=== PATIENT | female | born 1965 | race Caucasian/White ===

== ENCOUNTER 2017-03-15 21:26 | Inpatient (IN) ==
[2017-03-15] MEDS ORDERED: DUONEB (A & A) INH ONE (21:55)
--- NOTE | 2017-03-15 22:11 | PROVIDER DOCUMENTATION ---
HPI-Respiratory General - General Chief Complaint: Cough Stated Complaint: NAUSEA/FACIAL NUMB Time Seen by Provider: 03/15/17 22:05 Allergies/Adverse Reactions: Patient Allergies Allergy/AdvReac Type Severity Reaction Status Date / Time povidone-iodine Allergy SWELLING Verified 03/15/17 21:43 [From Betadine] soap [From Betadine] Allergy SWELLING Verified 03/15/17 21:43 Home Medications: Home Medication List Medication Instructions Recorded Confirmed Last Taken Type NK [No Home Medications] 03/15/17 03/15/17 Unknown History Review of Systems - Adult - REVIEW OF SYSTEMS - ADULT Constitutional: reports: see HPI Eyes: reports: no symptoms reported Ears, Nose, Mouth & Throat: reports: no symptoms reported Cardiovascular: reports: no symptoms reported Respiratory: reports: see HPI Gastrointestinal: reports: no symptoms reported Genitourinary: reports: no symptoms reported Musculoskeletal: reports: no symptoms reported Integumentary: reports: no symptoms reported Neurological: reports: no symptoms reported Psychiatric: reports: no symptoms reported Endocrine: reports: no symptoms reported Hematologic/Lymphatic: reports: no symptoms reported Allergic/Immunologic: reports: no symptoms reported All Other Systems: Reviewed and Negative Past History - Adult - PAST MEDICAL HISTORY-ADULT Review of Records: reports: Old Records Reviewed, Nursing Assessment Review, Medications Reviewed Major Childhood Illnesses: reports: denies history Cardiovascular: reports: denies history Respiratory: reports: pneumonia Gastrointestinal: reports: denies history Obstetrical/Gynecological: reports: denies history Genitourinary: reports: denies history Musculoskeletal: reports: denies history Neurological: reports: denies history Psychiatric: reports: denies history Endocrine/Immune: reports: denies history Other Conditions: reports: denies history - PRIOR SURGERIES/PROCEDURES Surgical/Procedure History: reports: none - FAMILY HISTORY Family History: reviewed, not pertinent - SOCIAL HISTORY Smoking: less than 1 pack/day Substance Use: none/never Alcohol Use Frequency: never Living Situation: family Physical Exam-General - PHYSICAL EXAM-ADULT Initial Vital Signs Reviewed: Yes - CONSTITUTIONAL General Appearance: alert, mild distress - EYES Eyes: PERRL/EOMI, pink conjunctivae - HEAD, EARS, NOSE, MOUTH & THROAT HENMT: normocephalic/atraumatic, moist mucous membranes, normal ENT inspection, TMs normal, pharynx normal - NECK Neck: non-tender, full range of motion, supple - RESPIRATORY Respiratory: chest non-tender, rhonchi, wheezing, increased rate. negative: no pleuratic chest pain, no respiratory distress, no accessory muscle use, respiratory distress, decreased breath sounds, accessory muscle use, crackles, rales, dull on percussion, prolonged expiration, pain on inspiration, plerual rub, retractions, splinting, decreased rate, crepitus, other - CARDIOVASCULAR Cardiovascular: normal peripheral pulses, regular rate, rhythm - GASTROINTESTINAL (ABDOMEN) Abdominal Exam: normal bowel sounds - LYMPHATIC Lymphatic: no adenopathy - MUSCULOSKELETAL Back Exam: normal inspection Extremity: normal range of motion - SKIN Integumentary: normal color, normal turgor, warm/dry - NEUROLOGIC Neurologic: artist woodblock II-XII nml as tested, grossly normal, no motor/sensory deficits - PSYCHIATRIC Psych/Mental Status: normal mood/affect, normal thought content, normal thought process Progress - PLAN OF CARE/RESULTS Progress/Plan/Lab Results: Vital Signs - 8 hr 03/15/17 21:34 03/15/17 21:58 03/15/17 21:59 Temperature 98.5 F Pulse Rate 108 H 89 87 Respiratory Rate 20 Blood Pressure 118/75 O2 Sat by Pulse Oximetry 91 L 91 L 95 03/15/17 22:05 03/16/17 00:14 Temperature Pulse Rate 91 H 82 Respiratory Rate 18 20 Blood Pressure 138/78 O2 Sat by Pulse Oximetry 96 98 Laboratory Results - last 24 hr 03/15/17 03/15/17 03/15/17 22:20 23:50 23:50 WBC 10.82 H RBC 4.18 L Hgb 12.9 Hct 40.1 MCV 95.9 MCH 30.9 MCHC 32.2 L RDW Std Deviation 13.3 Plt Count 219 MPV 10.1 Immature Gran % (Auto) 0.1 Neut % (Auto) 48.7 Lymph % (Auto) 40.1 [place] % (Auto) 9.1 Eos % (Auto) 1.6 Baso % (Auto) 0.4 Immature Gran # (Auto) 0.01 Neut # (Auto) 5.27 Lymph # (Auto) 4.34 H [place] # (Auto) 0.99 H Eos # (Auto) 0.17 Baso # (Auto) 0.04 D-Dimer Specimen Type ARTERIAL Sample Site R BRACHIAL pH 7.42 pCO2 47 H pO2 45 L* HCO3 28.4 H Base Excess 5.0 H Oxyhemoglobin 83.2 L* ABG O2 Sat (Calculated) 16.6 ABG O2 Saturation 85.7 L ABG Carboxyhemoglobin 2.40 ABG Methemoglobin 0.5 Ga Test YES A-a O2 Difference 46.0 Total Hemoglobin 14.2 Lactate 0.70 Blood Gas Modality ROOM AIR FiO2 % 21.0 Sodium 140 Potassium 3.8 Chloride 106 Carbon Dioxide 25 Anion Gap 9 BUN 23 H Creatinine 1.2 H Estimated GFR/1.73 m2 47 BUN/Creatinine Ratio 19 Glucose 105 H Calculated Osmolality 283 Calcium 8.5 L Total Bilirubin < 0.15 L AST 14 ALT 10 Alkaline Phosphatase 58 Troponin T Qvo-R-Nxknftukafh Pept Total Protein 6.1 L Albumin 3.7 Globulin 2.0 Albumin/Globulin Ratio 2.0 03/15/17 03/15/17 03/15/17 23:50 23:50 23:50 WBC RBC Hgb Hct MCV MCH MCHC RDW Std Deviation Plt Count MPV Immature Gran % (Auto) Neut % (Auto) Lymph % (Auto) [place] % (Auto) Eos % (Auto) Baso % (Auto) Immature Gran # (Auto) Neut # (Auto) Lymph # (Auto) [place] # (Auto) Eos # (Auto) Baso # (Auto) D-Dimer 0.35 Specimen Type Sample Site pH pCO2 pO2 HCO3 Base Excess Oxyhemoglobin ABG O2 Sat (Calculated) ABG O2 Saturation ABG Carboxyhemoglobin ABG Methemoglobin Ga Test A-a O2 Difference Total Hemoglobin Lactate Blood Gas Modality FiO2 % Sodium Potassium Chloride Carbon Dioxide Anion Gap BUN Creatinine Estimated GFR/1.73 m2 BUN/Creatinine Ratio Glucose Calculated Osmolality Calcium Total Bilirubin AST ALT Alkaline Phosphatase Troponin T < 0.010 Dhl-R-Ennqtjcwonx Pept 44 Total Protein Albumin Globulin Albumin/Globulin Ratio Orders Category Date Time Status Admit - [facility] Routine AdmDCTranf 03/16/17 00:54 Ordered Activity - Bed Rest with BRP ORDERED Care 03/16/17 00:54 Active Cardiac Monitoring DIRECTED Care 03/15/17 23:08 Active Resuscitation Status Routine Care 03/16/17 00:54 Ordered Saline Loc NOW Care 03/15/17 22:56 Active Vital Signs Order Q 4-HR ASSESS Care 03/16/17 00:54 Active Z-Document. for Tele Applied ORDERED Care 03/16/17 00:55 Active Heart Healthy Diet Diet 03/16/17 00:56 Active CHEST-2 VIEWS [RAD] Stat Exams 03/15/17 22:08 Taken ABG [RESP] Routine Lab 03/15/17 22:20 Completed BLOOD CULTURE [BLDCUL] Stat Lab 03/15/17 22:56 Ordered BNP [PRO B-NATRIURETIC PEPTIDE] Stat Lab 03/15/17 23:50 Completed CBC WITH DIFF [HEME] Stat Lab 03/15/17 23:50 Completed COMPREHENSIVE METABOLIC PANEL [CHEM] Stat Lab 03/15/17 23:[address] D-DIMER [address] [COAG] Stat Lab 03/15/17 23:50 Completed TROPONIN T Stat Lab 03/15/17 23:50 Completed 0.9% Sodium Chloride Inj [Ns] 1,000 ml Med 03/15/17 22:55 Discontinued IV Wide Open 0.9% Sodium Chloride Inj [Ns] 2,400 ml Med 03/16/17 00:54 Active IV 100 mls/hr Albuterol 2.5MG/Ipratrop 0.5MG [Duoneb (A & A)] Med 03/15/17 21:55 Discontinued 3 ml INH NOW ONE Albuterol 2.5MG/Ipratrop 0.5MG [Duoneb (A & A)] Med 03/16/17 03:30 Active 3 ml INH RTQ4H CefTRIAXONE 1 GM/NS [Rocephin 1 gm/Ns] Med 03/16/17 00:58 Active 1 gm in 50 ml IV NOW Methylprednisolone Sod Succ [Solu-Medrol] Med 03/15/17 22:55 Discontinued 125 mg IV NOW ONE Methylprednisolone Sod Succ [Solu-Medrol] Med 03/16/17 01:00 Active 60 mg IV Q6H Aerosol Treatments Routine Ot 03/15/17 21:56 Active Aerosol Treatments Routine Ot 03/16/17 00:57 Active Aerosol Treatments Stat Ot 03/15/17 21:56 Active Aerosol Treatments Stat Ot 03/16/17 00:57 Active O2 Per Protocol Routine Ot 03/15/17 21:56 Active Oxygen Device Routine Ot 03/16/17 00:55 Active Pulse Oximetry Stat Ot 03/15/17 22:56 Active Telemetry [OM.EQ] Routine Ot 03/16/17 00:54 Active EKG [EKG] Stat Ther 03/15/17 23:08 Draft Transfer/Admit Order [TRANSFER] Routine Transfer 03/16/17 00:57 Ordered DISCUSSED FINDINGS AND NEED FOR HOSPITALIZATION WITH PATIENT AND FAMILY WHO VOICE UNDERSTANDING OF CARE. Result Diagrams: 03/15/17 23:50 03/15/17 23:50 - XRAY 1 XRAY Study: Chest Impression: Normal (NO PNEUMONIA. NO PNEUMOTHORAX) - CT/MRI 1 MRI Study: Chest Impression: Normal (NO PE. NO PNEUMONIA) - CONSULTS/PCP/HOSPITALIST Notification Time Discussed: 13:00 Reason/Comments: ADMIT TO FLOOR Consult Disposition: Admit Departure - Departure Date of Disposition Decision: 03/16/17 Time of Disposition Decision: 01:04 DIAGNOSIS: COPD exacerbation, Hypoxemia Disposition: ADMITTED INPATIENT 09 Certified Medical Emergency: Emergent Condition: Stable Referrals and Follow-Ups: None,PCP [Primary Care Provider] - - Critical Care Note This patient required my direct & personal management of CC.: No Attestation - Physician/ ANJEL Attestation Patient care was provided by Advanced Practice Provider:: Yes Advanced Practice Provider:: Francoise Meeyrs Advanced Practice Provider documentation review:: The Mid-level provider documentation, treatment plan and medical decision making was reviewed by the physician who agrees with all treatment and medical decision making by the [facility]. The physician spent face to face time with patient:: Yes Advanced Practice Provider documentation review:: Supervising physician onsite and consulted in the evaluation and care of this patient. The physician did have a face to face encounter with the patient.
[2017-03-15 22:39] LABS: BLOOD TYPE ARTERIAL; DRAW SITE R BRACHIAL; METHB 0.5 % (0.0-1.5); O2(CT) 16.6 mL/dL (15.0-23.0); PCO2(98.6) 47 mmHg (35-45); SAMPLE BLOOD; SAO2 85.7 % (95.0-100.0); THB 14.2 g/dL (11.5-17.4); pH(98.6) 7.42 (7.35-7.45)
[2017-03-15 22:43] LABS: PO2(98.6) 45 mmHg (60-100)
[2017-03-15 22:44] LABS: MODALITY ROOM AIR
[2017-03-15] MEDS ORDERED: NS 1,000 ML IV ONE (22:55)
[2017-03-15] MEDS ORDERED: SOLU-MEDROL IV ONE (22:55)
--- NOTE | 2017-03-15 23:24 | EKG Report ---
Test Performed on : 03/15/2017 11:21:54 PM Test Reason : CP Blood Pressure : / mmHG Vent. Rate : 085 BPM Atrial Rate : 085 BPM P-R Int : 126 ms QRS Dur : 090 ms QT Int : 394 ms P-R-T Axes : 070 062 053 degrees QTc Int : 468 ms Normal sinus rhythm. Possible Left atrial enlargement Possible Anterior infarct , age undetermined Abnormal ECG No previous ECGs available Unconfirmed Result
--- NOTE | 2017-03-15 23:28 | ED EKG INTERP ---
This chart was entered by Pushpa Kennedy Scribe, acting as scribe for Nico Aldridge MD. EKG Interpretation - EKG Time of EKG reading by physician:: 23:21 EKG Read and Signed by:: Nico Aldridge EKG Interpretation (*Must complete 3 of following elements*): Abnormal Rate: 85 Rhythm: normal sinus Comments: Abnormal ECG Attestation - Physician/ ANJEL Attestation Patient care was provided by Advanced Practice Provider:: Yes Advanced Practice Provider documentation review:: The Mid-level provider documentation, treatment plan and medical decision making was reviewed by the physician who agrees with all treatment and medical decision making by the MLP. The physician spent face to face time with patient:: No Advanced Practice Provider documentation review:: Supervising physician onsite and consulted in the evaluation and care of this patient. The physician did not have a face to face encounter with the patient. This chart was documented by the indicated scribe, (Pushpa Kennedy Scribe) and accurately reflects the services I performed and decisions made by me, Nico Aldridge MD, as attested by the provider's signature.
[2017-03-15 23:56] LABS: MANUAL DIFF NEEDED? NO
[2017-03-16 00:04] LABS: BASO% 0.4 % (0.0-0.8); EOS# 0.17 X1000 (0.0-0.7); EOS% 1.6 % (0.0-10.0); HEMATOCRIT 40.1 % (37.0-47.0); HEMOGLOBIN 12.9 g/dL (12.0-16.0); IMM GRAN# 0.01 X1000 (0.0-0.04); IMM GRAN% 0.1 % (0.0-0.5); LYMPH# 4.34 X1000 (1.2-3.4); LYMPH% 40.1 % (20.5-51.1); MCH 30.9 PG (27-31); MCHC 32.2 g/dL (33-37); MCV 95.9 FL (81-99); MONO# 0.99 X1000 (0.11-0.59); MONO% 9.1 % (1.7-9.3); MPV 10.1 FL (7.4-10.4); NEUT% 48.7 % (42.2-75.2); PLT 219 X1000 (130-400); RBC 4.18 XMIL (4.2-5.4)
[2017-03-16 00:50] LABS: AGAP 9; ALBUMIN 3.7 g/dL (3.5-5.0); ALKALINE PHOSPHATASE 58 U/L (32-104); BUN 23 mg/dL (8-22); CALCIUM 8.5 mg/dL (8.8-10.2); CHLORIDE 106 mmol/L (98-107); COSMO 283; GOT 14 U/L (10-30); GPT 10 U/L (10-36); POTASSIUM 3.8 mmol/L (3.5-5.1); SODIUM 140 mmol/L (136-145); TCO2 25 mmol/L (25-35); TOTAL BILIRUBIN < 0.15 mg/dL (0.20-1.00); TOTAL PROTEIN 6.1 g/dL (6.3-8.3)
[2017-03-16] MEDS ORDERED: NS 2,400 ML IV ONE (00:54)
[2017-03-16] MEDS ORDERED: ROCEPHIN 1 GM/NS 1 GM/50 ML IVPB IV ONE (00:58)
[2017-03-16] MEDS: SOLU-MEDROL IV SCH ×4 (02:56→19:53)
[2017-03-16] MEDS ORDERED: ZOFRAN IV PRN (03:25)
[2017-03-16] MEDS: DUONEB (A & A) INH SCH ×6 (03:26→23:45)
[2017-03-16] MEDS: TYLENOL PO PRN ×2 (04:25→18:24)
--- NOTE | 2017-03-16 05:59 | Diag Imaging Result Doc PS360 ---
EXAM: CHEST-2 VIEWS HISTORY: SOB TECHNIQUE: COMPARISON: None. FINDINGS: The lungs are hyper expanded. The heart is not enlarged. The vessels are not distended. There are no infiltrates. No pleural effusions. Mild scoliosis. IMPRESSION: The lungs are hyperexpanded and the patient may have emphysema. Electronically signed by Benji Mane 03/16/2017 5:56 AM
[2017-03-16] MEDS: ZITHROMAX 500 MG/NS 500 MG/250 ML IVPB IV SCH (06:59)
[2017-03-16] MEDS ORDERED: NICODERM PATCH TD PRN (11:23)
[2017-03-16 11:56] LABS: ALLEN TEST NO
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
[2017-03-17] MEDS: DUONEB (A & A) INH SCH ×6 (03:37→23:23)
[2017-03-17] MEDS: SOLU-MEDROL IV SCH ×3 (04:02→20:34)
[2017-03-17] MEDS: ZITHROMAX 500 MG/NS 500 MG/250 ML IVPB IV SCH (06:04)
[2017-03-17] MEDS: PRILOSEC PO SCH (06:11)
[2017-03-17 06:33] LABS: HEMATOCRIT 39.8 % (37.0-47.0); HEMOGLOBIN 12.9 g/dL (12.0-16.0); MCH 30.4 PG (27-31); MCHC 32.4 g/dL (33-37); MCV 93.9 FL (81-99); RBC 4.24 XMIL (4.2-5.4)
[2017-03-17 06:49] LABS: AGAP 11; BUN 17 mg/dL (8-22); CALCIUM 9.3 mg/dL (8.8-10.2); CHLORIDE 104 mmol/L (98-107); COSMO 283; POTASSIUM 4.2 mmol/L (3.5-5.1); SODIUM 140 mmol/L (136-145); TCO2 24 mmol/L (25-35)
[2017-03-17] MEDS ORDERED: TYLENOL PO PRN (08:06)
[2017-03-17] MEDS ORDERED: ZOFRAN IV PRN (08:06)
[2017-03-17] MEDS ORDERED: ZITHROMAX 500 MG/NS 500 MG/250 ML IVPB IV SCH (08:06)
--- NOTE | 2017-03-17 08:29 | PROGRESS NOTE ---
DATE: 03/17/2017 SUBJECTIVE: The patient states still short of breath, still coughing and still fatigued. Denies any chest pain, palpitations. Denies any fevers or chills. OBJECTIVE: Vital Signs Reviewed: Temperature 97 degrees, pulse 91, respiratory rate 18, BP 131/68, saturation 96% on 2 L. General: Patient is awake, alert. She is currently in mild respiratory distress. Speech is regular. Memory is intact. She is able to speak in complete sentences. HEENT: Normocephalic, atraumatic. C[place]DRA. Neck: Supple. CV: Regular rate. Chest: Decreased breath sounds. Positive mild wheezing bilaterally, but equal bilaterally. Abdomen: Soft. Extremities: Moves all extremities. Neurologic: No changes. LABS: WBC is 15.9. CMP otherwise normal. ASSESSMENT: 1. Chronic obstructive pulmonary disease with exacerbation. 2. Chronic tobacco abuse. 3. Hypoxemia. 4. Leukocytosis. PLAN: We will continue patient on Solu-Medrol 40 IV q. 8 hours; will not change today. Will continue azithromycin, but will change this to p.o. Will continue Rocephin for now. Again, discussed with patient the perils of smoking as well as ways to stop. The patient seems somewhat reluctant to believe that smoking has any current bearing on her illness. We will continue to follow. cc: Glenn Dillard MD
[2017-03-18] MEDS ORDERED: ROCEPHIN 1 GM/NS 1 GM/50 ML IVPB IV SCH (02:00)
[2017-03-18] MEDS: SOLU-MEDROL IV SCH ×2 (03:32→12:10)
[2017-03-18] MEDS: DUONEB (A & A) INH SCH ×3 (03:41→11:35)
[2017-03-18] MEDS: PRILOSEC PO SCH (06:19)
[2017-03-18] MEDS ORDERED: ZITHROMAX PO SCH (09:00)
[2017-03-18 11:59] VITALS: BP 113/64
--- NOTE | 2017-03-19 11:33 | DISCHARGE SUMMARY ---
ADMISSION DATE: 03/17/2017 DISCHARGE DATE: 03/18/2017 DIAGNOSES: 1. Hypoxemia. 2. Chronic obstructive pulmonary disease, acute exacerbation. 3. Leukocytosis. 4. Nicotine use and abuse. PROCEDURES: 1. 03/15/2017, chest x-ray, revealed lungs are hyperexpanded the patient may have emphysema. Heart is not enlarged. Vessels are not distended. There are no infiltrates. no pleural effusions. Mild scoliosis. 2. Blood cultures revealed no growth after 48 hours x2 sets. HOSPITAL COURSE: Ms. Ivy presented to the emergency room complaining of a cough for a few days. She stated that she was cleaning with some strong chemicals and the cough started shortly after this. She did state it was a nonproductive cough. She had no accompanying chest pain, palpitations, dizziness, fever, chills. She did have oxygen saturation of 90 and 91 on room air on admission. She was able to speak in full sentences. Saturations ranged in the 89-93-94 range. She was supplemented with 2 L nasal cannula during the day of the on room air saturations were 96-100%. She was treated with supplemental oxygen, DuoNeb q.4 hours and q.2 hours p.r.n. with steroids to taper as well as azithromycin and Rocephin for antibiotic coverage. She did improve and thankfully is ready for discharge today. Of note, her room air saturations as stated before are 96-100%. DISCHARGE PHYSICAL EXAMINATION: Cardiovascular: Regular rate and rhythm. S1 and S2 are appreciated. Pulmonary: Breath sounds are clear. Diminished throughout with no increased work of breathing noted. Chest does rise and fall symmetrically with respiration. Gastrointestinal: Abdomen is soft, nontender, nondistended. Bowel sounds in all 4 quadrants. Extremities: No clubbing, cyanosis, or edema. Calves are nontender. Pulses are palpable x4. DISCHARGE MEDICATIONS: 1. Medrol Dosepak as directed. 2. Omnicef 300 mg b.i.d. 3. Zithromax 500 mg daily, both are for 7 days. FOLLOWUP: She is to follow up with her primary care physician in 1 week. If she has none she will be given a list for the physician referral line as well as the [facility] as well. DISPOSITION: She is being discharged home in stable condition with family members. TIME SPENT: This is a 35 minute discharge. Dictated by SHITAL Denis for Glenn Dillard MD cc: SHITAL Denis MD
== END 2017-03-18 15:20 | disposition home or self-care (01) ==
LOC: P.MEDSURG 21:26 → P.ED 21:26 → SUATTDRO 03-16 01:09
PROVIDERS: ATTEND Family Medicine